=== PATIENT | female | born 1950 | race Caucasian/White ===

== ENCOUNTER 2023-07-31 10:29 | Outpatient (CLI) | payer MEDICARE, BC | END 2023-07-31 10:30 | disposition home or self-care (01) | LOC: SCSRAD 10:29 | PROVIDERS: ATTEND Family Medicine | DX: M17.0 Bilateral primary osteoarthritis of knee (principal); E78.00 Pure hypercholesterolemia, unspecified; E03.9 Hypothyroidism, unspecified; R52 Pain, unspecified | CPT/HCPCS: 36415; 73565; 80053; 80061; 81001; 84443; 85025; 86141 ==

== ENCOUNTER 2023-10-18 11:29 | Outpatient (CLI) | payer BC, MEDICARE | END 2023-10-18 11:30 | disposition home or self-care (01) | LOC: SCSRAD 11:29 | PROVIDERS: ATTEND Family Medicine | DX: R05.1 Acute cough (principal) | CPT/HCPCS: 71046 ==